=== PATIENT | male | born 1990 | race Caucasian/White ===

== ENCOUNTER 2018-02-16 13:43 | Emergency (ER) | payer BC ==
[2018-02-16 13:55] VITALS: BP 155/113
[2018-02-16] MEDS ORDERED: LORazepam 2 MG/ML SDV IVPUSH ONE (14:01)
[2018-02-16] MEDS ORDERED: Sodium Chloride 0.9% 10 ML Syringe FLUSH PRN (14:02)
--- NOTE | 2018-02-16 14:16 | EDM.PDOC ---
ED HPI GENERAL MEDICAL PROBLEM - General Chief Complaint: Chest Pain Stated Complaint: CHEST PPAIN Time Seen by Provider: 02/16/18 14:12 Source of Information: Reports: Patient History Limitations: Reports: No Limitations - History of Present Illness INITIAL COMMENTS - FREE TEXT/NARRATIVE: 27-year-old male presents for evaluation and treatment of chest pain. Patient reports of chest pain started suddenly about 2 hours prior to arrival in the ED. States it is located in the center of his chest. No radiation to his back, arms or neck. No associated shortness of breath, nausea, vomiting or diaphoresis. Patient reports he's had episodes similar to this in the past but nothing has lasted this long. Patient is very tearful upon examination. He is anxious and reports problems with depression. Chest Pain Score (Numeric/FACES): 6 - Related Data Allergies Allergy/AdvReac Type Severity Reaction Status Date / Time No Known Allergies Allergy Verified 02/16/18 13:55 Home Meds: Home Meds Escitalopram [Lexapro] 10 mg PO DAILY #30 tab 02/16/18 [Rx] LORazepam [Ativan] 0.5 mg PO Q6HR PRN #10 tablet 02/16/18 [Rx] Past Medical History - Past Health History Medical/Surgical History: Denies Medical/Surgical History Other HEENT History: WEARS GLASSES AND CONTACTS Other Musculoskeletal History: L little finger hit when pt catching fast softball approximately 1820 tonight. Pt took 1gm tylenol at 1930. Ice applied on arrival to ER. Pt rom decreased, swelling present. - Past Surgical History Other HEENT Surgeries/Procedures: Dental tx under [facility] at the age of 8 ED ROS GENERAL - Review of Systems Review Of Systems: See Below Respiratory: Denies: Shortness of Breath Cardiovascular: Reports: Chest Pain GI/Abdominal: Denies: Nausea, Vomiting Musculoskeletal: Denies: Neck Pain, Arm Pain, Back Pain Psychiatric: Reports: Anxiety, Depression ED EXAM, GENERAL - Physical Exam Exam: See Below Exam Limited By: No Limitations General Appearance: Alert, WD/WN, No Apparent Distress, Anxious Nose: Normal Inspection Throat/Mouth: Normal Inspection, Normal Lips, Normal Voice, No Airway Compromise Respiratory/Chest: No Respiratory Distress, Lungs Clear, Normal Breath Sounds Cardiovascular: Normal Peripheral Pulses, Regular Rate, Rhythm, No Murmur Neurological: Alert, Oriented, Normal Cognition Psychiatric: Anxious, Tearful Skin Exam: Warm, Dry, Normal Color EKG INTERPRETATION EKG Date: 02/16/18 Time: 14:10 Rhythm: NSR Rate (Beats/Min): 70 [place]: Normal P-Wave: Present QRS: Normal ST-T: Normal QT: Normal EKG Interpretation Comments: NSR At [address] segment changes. Reviewed by myself and Dr. Rodgers. Course - Vital Signs Last Recorded V/S: Last Vital Signs Temp 97.6 F 02/16/18 13:52 Pulse 69 02/16/18 13:52 Resp 18 02/16/18 13:52 BP 155/113 H 02/16/18 13:52 Pulse Ox 100 02/16/18 13:52 - Orders/Labs/Meds Labs: Laboratory Tests 02/16/18 02/16/18 Range/Units 14:15 14:15 WBC 9.14 H (4.23-9.07) K/mm3 RBC 5.72 (4.63-6.08) M/mm3 Hgb 16.9 (13.7-17.5) gm/L Hct 47.7 (40.1-51.0) % MCV 83.4 (79.0-92.2) fl MCH 29.5 (25.7-32.2) pg MCHC 35.4 (32.2-35.5) g/dl RDW Std Deviation 38.9 (35.1-43.9) fL Plt Count 200 (163-337) K/mm3 MPV 9.7 (9.4-12.3) fl Neut % (Auto) 69.8 H (34.0-67.9) % Lymph % (Auto) 21.2 L (21.8-53.1) % Lea % (Auto) 5.7 (5.3-12.2) % Eos % (Auto) 2.8 (0.8-7.0) Baso % (Auto) 0.2 (0.1-1.2) % Neut # (Auto) 6.37 H (1.78-5.38) K/mm3 Lymph # (Auto) 1.94 (1.32-3.57) K/mm3 Lea # (Auto) 0.52 (0.30-0.82) K/mm3 Eos # (Auto) 0.26 (0.04-0.54) K/mm3 Baso # (Auto) 0.02 (0.01-0.08) K/mm3 Sodium 144 (136-145) mEq/L Potassium 3.8 (3.5-5.1) mEq/L Chloride 106 (98-107) mEq/L Carbon Dioxide 25 (21-32) mEq/L Anion Gap 16.8 H (5-15) BUN 14 (7-18) mg/dL Creatinine 1.0 (0.7-1.3) mg/dL Est Cr Clr Drug Dosing 131.43 mL/min Estimated GFR (MDRD) > 60 (>60) mL/min BUN/Creatinine Ratio 14.0 (14-18) Glucose 96 (74-106) mg/dL Calcium 9.7 (8.5-10.1) mg/dL Total Bilirubin 1.5 H (0.2-1.0) mg/dL AST 43 H (15-37) U/L ALT 34 (16-63) U/L Alkaline Phosphatase 89 (46-116) U/L Total Protein 8.0 (6.4-8.2) g/dl Albumin 4.5 (3.4-5.0) g/dl Globulin 3.5 gm/dL Albumin/Globulin Ratio 1.3 (1-2) Lipase 66 L (73-393) U/L TSH 3rd Generation 1.132 (0.358-3.74) uIU/mL Meds: Medications Discontinued Medications Generic Name Dose Route Start Last Admin Trade Name Freq PRN Reason Stop Dose Admin Lorazepam 1 mg 02/16/18 14:01 02/16/18 14:15 Ativan IVPUSH 02/16/18 14:02 1 mg ONETIME ONE Administration Sodium Chloride 10 ml 02/16/18 14:02 02/16/18 14:15 Saline Flush FLUSH 10 ml ASDIRECTED PRN Administration Keep Vein Open - Radiology Interpretation Free Text/Narrative:: Chest: Two views of the chest were obtained. Comparison: Prior chest x-ray is not available. Comparison: No prior chest x-ray. Heart size and mediastinum are normal. Lungs are clear. Bony structures are unremarkable for patient's age. Impression: 1. Nothing acute is seen on two-view chest x-ray. - Re-Assessments/Exams Free Text/Narrative Re-Assessment/Exam: 02/16/18 16:30 I reviewed the labs, EKG and imaging with the patient and his mother. Significantly more calm since taking the ativan. No longer anxious or tearful. He is now quiet but will answer questions. This does appear to be of anxiety and panic attack. His chest pain has improved. He does report thoughts of suicide but is not actively suicidal has no plan. He denies any homicidal thoughts I feel he'll benefit from medication and close follow. We'll start him on Lexapro and have him follow-up closely with family med. His mother has been in contact with a clinical psychologist while he has been here in the ED. She has agreed to see the patient. He will need to call and set this up. His mother has the contact information. Warned of black box warning on lexapro. Encouraged to seek help if his thoughts of suicide progress or he makes a plan. At this point he does not have a plan and expresses no desire to act on his thoughts. discharge instructions as documented. Departure - Departure Time of Disposition: 16:30 Disposition: Home, Self-Care 01 Condition: Fair Clinical Impression: Depressive disorder, Anxiety, Panic attack Prescriptions: LORazepam [Ativan] 0.5 mg PO Q6HR PRN #10 tablet PRN Reason: Anxiety Escitalopram [Lexapro] 10 mg PO DAILY #30 tab Instructions: Panic Attack, [id number], Persistent Depressive Disorder, Adult , [id number] Referrals: PCP,None [Primary Care Provider] - Elly Beebe NP [Ordering Only Provider] - Forms: ED Department Discharge Additional Instructions: you were given medication in the ED that may make you sedated. Recommend not driving for 10 hours due to this medication. We will start on Lexapro today. Start with 1 tablet 10 mg daily. This medication has a black box warning for increased suicidality. If you experience worsening thoughts of suicide or plan return to the ER immediately. Ativan 1 tab every 6 hours as needed for panic and anxiety attacks. This medication may make you drowsy. Do not drive or operate machinery within 10 hours of taking this medication. Follow-up with family medicine, psychologist or psychiatrist within 2 weeks for recheck of your symptoms. Recommend Elly Beebe or Zaira Nicolas at [facility]. Call [phone] to schedule with one of these providers. Please return to the ER if your symptoms change or worsen.
--- NOTE | 2018-02-16 15:59 | CR ---
Chest: Two views of the chest were obtained. Comparison: Prior chest x-ray is not available. Comparison: No prior chest x-ray. Heart size and mediastinum are normal. Lungs are clear. Bony structures are unremarkable for patient's age. Impression: 1. Nothing acute is seen on two-view chest x-ray. Diagnostic code #1
== END 2018-02-16 16:50 | disposition home or self-care (01) ==
LOC: JD.ED 13:43
DX: F41.0 Panic disorder [episodic paroxysmal anxiety] (principal); F32.9 Major depressive disorder, single episode, unspecified
CPT/HCPCS: 36415; 71046; 80053; 83690; 84443; 85025; 93005; 96374; 99285; J2060; J7050; 93010; 99284